=== PATIENT | male | born 2000 | race African-American/Black ===

== ENCOUNTER 2023-10-24 20:07 | Emergency (ER) | payer SELFPAY ==
[2023-10-24 20:08] VITALS: BP 95/56; PULSE 75; RESP 16; TEMP 36.8; O2SAT 100
--- NOTE | 2023-10-24 21:05 | ED.EYEPROB ---
HPI - Eye Problem General Chief complaint: Eye Problems Stated complaint: eye Time Seen by Provider: 10/24/23 20:31 Source: patient Mode of arrival: ambulatory Limitations: no limitations History of Present Illness HPI Narrative: This is a 22 year old male that presents to the ER for right eye redness. Ongoing over the last couple of days. Reports he was sick with a cold. Reports he noted some redness to his eye and was prompted to be seen by his dad. Denies vision changes. Related Data Allergies Allergy/AdvReac Type Severity Reaction Status Date / Time No Known Allergies Allergy Unverified 10/24/23 20:13 Review of Systems Review of Systems: CONSTITUTIONAL: Denies fever EYES: Reports redness and discharge. Denies visual changes All systems reviewed & are unremarkable except as noted in HPI and below PMFSH Past Medical History Medical History (Updated 10/24/23 @ 21:14 by Tasia Duran PA-C) No active medical problems Social History Social History (Updated 10/24/23 @ 21:14 by Tasia Duran PA-C) Substance use: never Exam Narrative: GENERAL: Well-appearing, well-nourished, and in no acute distress. HEAD: Normocephalic, atraumatic. EYES: PERRLA and EOMI. Mild purulent drainage of the right eye with small subconjunctival hemorrhage. No foreign bodies noted. Eye pressure 18 on the right, 20 on the left. Visual acuity 20/30 bilaterally. No fluorescein stain uptake EXTREMITIES: Normal range of motion. No edema. SKIN: Warm, dry, no rash. NEURO: No focal deficits. Alert and oriented x3. PSYCH: Normal mood and affect Course Course Emergency Course: Patient agrees with plan of care Vital Signs Vital signs: Vital Signs Temperature 98.2 F 10/24/23 20:08 Pulse Rate 75 10/24/23 20:08 Respiratory Rate 16 10/24/23 20:08 Blood Pressure 95/56 L 10/24/23 20:08 Pulse Oximetry 100 10/24/23 20:08 Oxygen Delivery Room Air 10/24/23 20:08 Temperature 98.2 F 10/24/23 20:08 Pulse Rate 75 10/24/23 20:08 Respiratory Rate 16 10/24/23 20:08 Blood Pressure 95/56 L 10/24/23 20:08 Pulse Oximetry 100 10/24/23 20:08 Oxygen Delivery Room Air 10/24/23 20:08 MDM - Eye Problem MDM Narrative Medical decision making narrative: Patient presents to the ER for subconjunctival hemorrhage. Patient also noted to have purulent drainage. Reporting recent viral illness. Will be started on antibiotic ointment for conjunctivitis. Normal visual acuity and pressures. He was instructed to follow-up with his primary provider. He was given warnings to return to the ER Differential Diagnosis Differential diagnosis: Likely corneal abrasion, conjunctivitis and subconjunctival hemorrhage Critical Care Time Critical Care Time Critical Care Time: No Discharge Plan Discharge Clinical Impression: Bacterial conjunctivitis Subconjunctival hemorrhage Qualifiers: Laterality: right Qualified Code(s): H11.31 - Conjunctival hemorrhage, right eye Patient Disposition: Home, Self-Care Condition: Stable Instructions: Antibiotic Form, Conjunctivitis (ED) Additional Instructions: Return to the emergency department if you experience fever, vision changes, vomiting, redness and swelling of your eye, or any other symptoms that are concerning to you. Apply antibiotic ointment as prescribed Follow up with your primary care doctor Prescriptions: New erythromycin 5 mg/gram (0.5 %) ointment 1 applic RIGHT EYE QID 7 Days Qty: 3.5 0RF Follow-up/Referrals: PHYSICIAN NOT ON STAFF,NONSTAFF [Primary Care Provider] -
== END 2023-10-24 21:21 | disposition home or self-care (01) ==
PROVIDERS: Emergency Provider Physician Assistant
DX: H10.89 Other conjunctivitis (principal); H11.31 Conjunctival hemorrhage, right eye
CPT/HCPCS: 99283